=== PATIENT | female | born 1970 | race Caucasian/White ===

== ENCOUNTER 2021-04-09 00:36 | Emergency (ER) | payer BC, MEDICARE ==
[~2021-04-09] VITALS: Ht 160 cm; Wt 97.7 kg
[2021-04-09] MEDS ORDERED: medical marijuana (01:05)
[2021-04-09 02:40] LABS: BASO % 0.4 % (0.0-1.0); EOS % 0.4 % (0.0-3.0); HEMATOCRIT 39.7 % (36.0-47.0); HEMOGLOBIN 12.9 g/dl (12.0-15.5); LYMPH # 1.7 10^3/uL (1.5-5.0); LYMPH % 18.7 % (24.0-44.0); MEAN CORPUSCULAR HGB CONC 32.5 g/dl (32.0-36.5); MEAN CORPUSCULAR VOLUME 95.4 fl (80.0-96.0); MONO # 0.8 10^3/uL (0.0-0.8); MONO % 8.5 % (2.0-8.0); NEUTROPHILS # 6.5 10^3/uL (1.5-8.5); NEUTROPHILS % 71.7 % (36.0-66.0); PLATELET COUNT, AUTOMATED 266 10^3/uL (150-450); RED BLOOD COUNT 4.16 10^6/uL (4.00-5.40); WHITE BLOOD COUNT 9.1 10^3/uL (4.0-10.0)
[2021-04-09 03:05] LABS: OSMOLALITY SERUM 296 MOSM/KG (275-295)
[2021-04-09 03:16] LABS: AMPHETAMINES LEVEL URINE NEGATIVE (NEGATIVE); BARBITURATES URINE NEGATIVE (NEGATIVE); BENZODIAZEPINES URINE NEGATIVE (NEGATIVE); CANNABINOIDS URINE POSITIVE (NEGATIVE); COCAINE METABOLITE URINE NEGATIVE (NEGATIVE); METHADONE URINE NEGATIVE (NEGATIVE); OPIATES URINE NEGATIVE (NEGATIVE); PHENCYCLIDINE URINE NEGATIVE (NEGATIVE)
[2021-04-09 03:16] LABS: ACETAMINOPHEN LEVEL < 2.0 UG/ML (10.0-30.0); ALBUMIN 3.5 GM/DL (3.2-5.2); ALT/SGPT 22 U/L (12-78); BILIRUBIN,DIRECT 0.1 MG/DL (0.0-0.2); BILIRUBIN,TOTAL 0.3 MG/DL (0.2-1.0); BLOOD UREA NITROGEN 17 MG/DL (7-18); CALCIUM LEVEL 8.7 MG/DL (8.5-10.1); CARBON DIOXIDE LEVEL 30 MEQ/L (21-32); CHLORIDE LEVEL 107 MEQ/L (98-107); CK-MB VALUE MASS 4.8 NG/ML (<3.6); CPK CREATINE PHOSPHOKINASE 251 U/L (26-192); CREATININE FOR GFR 0.83 MG/DL (0.55-1.30); ETHYL ALCOHOL (ETHANOL) < 0.003 % (0.000-0.010); GLOMERULAR FILTRATION RATE > 60.0 (>51); GLUCOSE, FASTING 92 MG/DL (70-100); MB/CK RELATIVE INDEX 1.91 (< OR =4); POTASSIUM SERUM 3.7 MEQ/L (3.5-5.1); SODIUM LEVEL 142 MEQ/L (136-145); TROPONIN I < 0.02 NG/ML (< 0.10)
--- NOTE | 2021-04-09 04:51 | REPVR ---
PROCEDURE INFORMATION: Exam: CT Head Without Contrast Exam date and time: 04/09/2021 2:21 AM Age: 51 years old Clinical indication: Pain; Headache; Additional info: Altered mental status TECHNIQUE: Imaging protocol: Computed tomography of the head without contrast. Radiation optimization: All CT scans at this facility use at least one of these dose optimization techniques: automated exposure control; mA and/or kV adjustment per patient size (includes targeted exams where dose is matched to clinical indication); or iterative reconstruction. COMPARISON: No relevant prior studies available. FINDINGS: Brain: Normal. No hemorrhage. Unremarkable white matter. No mass effect. Cerebral ventricles: No ventriculomegaly. Paranasal sinuses: Visualized sinuses are unremarkable. No fluid levels. Mastoid air cells: Visualized mastoid air cells are well aerated. Bones/joints: Unremarkable. No acute fracture. Soft tissues: Unremarkable. IMPRESSION: No acute intracranial abnormality. Electronically signed by: Demarcus Solano On 04/09/2021 04:51:12 AM
--- NOTE | 2021-04-09 04:51 | REPVR ---
PROCEDURE INFORMATION: Exam: XR Chest Exam date and time: 04/09/2021 2:43 AM Age: 51 years old Clinical indication: Other: AMS; Additional info: Altered mental status TECHNIQUE: Imaging protocol: XR of the chest. Views: 1 view. COMPARISON: No relevant prior studies available. FINDINGS: Lungs: No focal airspace consolidation. Pleural spaces: Unremarkable. No pleural effusion. No pneumothorax. Heart/Mediastinum: Unremarkable. No cardiomegaly. Bones/joints: Unremarkable. IMPRESSION: No focal airspace consolidation. Electronically signed by: Demarcus Solano On 04/09/2021 04:51:32 AM
[2021-04-09 06:15] VITALS: BP 149/79
[2021-04-09] MEDS ORDERED: BIOT1000 PO (13:57)
[2021-04-09] MEDS ORDERED: FLUO40CA PO (13:57)
[2021-04-09] MEDS ORDERED: HOME MED LIST COMPLETE! XX SCH (14:00)
--- NOTE | 2021-04-09 15:30 | MHIPNPDOC ---
[facility] Progress Note Progress Note DATE OF SERVICE: 04/09/21 Patient presented by PSA, meets involuntary criteria for admission. Patient 51-year-old from [place], presents psychotic was brought in by police after bystanders saw her sleeping on a religion gazebo. Patient did report having PNEAs (psychogenic nonepileptic activity) with violent outbursts, triggered by cold being tired, being hungry, having to listen to people. On interview per PSA is not logical and is disorganized, has paranoia and believes delusions people are trying to poison her eggs. She is positive for cannabis on urine tox, medical work-up is so far been negative including head CT, chest x-ray, urine, TSH and other basic labs. Vital Signs Vital Signs Date Time Temp Pulse Resp B/P (MAP) Pulse Ox O2 Delivery O2 Flow Rate FiO2 04/09/21 06:21 67 16 Room Air 04/09/21 06:15 149/79 (102) 04/09/21 03:51 97 04/09/21 00:50 96.7 Laboratory Data 24H Labs Laboratory Tests 2 04/09/21 02:10: Immature Granulocyte % (Auto) 0.3, Neutrophils (%) (Auto) 71.7H, Lymphocytes (%) (Auto) 18.7L, Monocytes (%) (Auto) 8.5H, Eosinophils (%) (Auto) 0.4, Basophils (%) (Auto) 0.4, Neutrophils # (Auto) 6.5, Lymphocytes # (Auto) 1.7, Monocytes # (Auto) 0.8, Eosinophils # (Auto) 0.0, Basophils # (Auto) 0.0, Nucleated Red Blood Cells % (auto) 0.0, Anion Gap 5L, Glomerular Filtration Rate > 60.0, Estimated Mean Plasma Glucose 97, Hemoglobin A1c 5.0, Osmolality 296H, Lactic Acid Level 0.7, Calcium Level 8.7, Total Bilirubin 0.3, Direct Bilirubin 0.1, Aspartate Amino Transf (AST/SGOT) 23, Alanine Aminotransferase (ALT/SGPT) 22, Alkaline Phosphatase 76, Ammonia < 10, Total Creatine Kinase 251H, Creatine Kinase MB 4.8H, Creatine Kinase MB Relative Index 1.91, Troponin I < 0.02, Total Protein 7.0, Albumin 3.5, Albumin/Globulin Ratio 1.0L, Thyroid Stimulating Hormone (TSH) 2.400, Salicylates Level 4.0L, Acetaminophen Level < 2.0L, Ethyl Alcohol Level < 0.003 04/09/21 02:35: Bedside Glucose (Misc Panel) 104 04/09/21 02:38: Urine Color YELLOW, Urine Appearance HAZY, Urine pH 5.0, Urine Specific [place] 1.026, Urine Protein 1+H, Urine Glucose (UA) NEGATIVE, Urine Ketones TRACEH, Urine Blood NEGATIVE, Urine Nitrite NEGATIVE, Urine Bilirubin NEGATIVE, Urine Urobilinogen 2.0H, Urine Leukocyte Esterase NEGATIVE, Urine WBC (Auto) 0, Urine RBC (Auto) 1, Urine Hyaline Casts (Auto) 1, Urine Bacteria (Auto) NEGATIVE, Urine Squamous Epithelial Cells 1, Urine Mucus (Auto) SMALL, Urine Sperm (Auto) , Urine Opiates Screen NEGATIVE, Urine Methadone Screen NEGATIVE, Urine Barbiturates Screen NEGATIVE, Urine Phencyclidine Screen NEGATIVE, Urine Amphetamines Screen NEGATIVE, Urine Benzodiazepines Screen NEGATIVE, Urine Cocaine Metabolite Screen NEGATIVE, Urine Cannabinoids Screen POSITIVEH CBC/BMP Laboratory Tests 04/09/21 02:10 Current Medications Current Medications Medications (Trade) Dose Ordered Sig/Alka Route PRN Reason Start Time Stop Time Status Last Admin Dose Admin Home Med (Home Med List Complete!) ASDIRECTED XX 04/09/21 14:00 04/09/21 14:01 DC Allergies Coded Allergies: No Known Drug Allergies (Verified Allergy, Unknown, 04/09/21) ANDREA PARHAM MD Apr 09, 2021 15:30
--- NOTE | 2021-04-09 19:15 | ECGEPIP ---
[facility] - ED Test Date: 2021-04-09 Pat Name: HENRY MARROQUIN Department: Room: - Gender: Female [employer]: ed : 1970 Requested By: SOLIS Gonzalez Order Number: [id number] Reading MD: Britney Toledo Measurements Intervals [place] Rate: 65 P: 60 CO: 120 QRS: 40 QRSD: 90 T: 19 QT: 430 QTc: 447 Interpretive Statements Normal sinus rhythm Nonspecific ST T wave changes No prior ECG for comparison Electronically Signed on 04-09-2021 19:14:40 EDT by Britney Toledo
[2021-04-09 19:19] LABS: RSV AMPLIFICATION NEGATIVE (NEGATIVE)
== END 2021-04-10 03:36 | disposition short-term general hospital (02) ==
LOC: M ED 00:36
DX: R41.82 Altered mental status, unspecified (principal); F10.10 Alcohol abuse, uncomplicated; F12.10 Cannabis abuse, uncomplicated